=== PATIENT | male | born 1995 | race Two or more races ===

== ENCOUNTER 2021-05-05 21:40 | Emergency (ER) | payer SELFPAY ==
[~2021-05-05] VITALS: Ht 165.1 cm; Wt 95.3 kg
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
[2021-05-05] MEDS ORDERED: TETRACAINE HCL 0.5% OPHTALMIC 15 ML BOTTLE OP ONE (22:00)
[2021-05-05] MEDS ORDERED: FLUORESCEIN SODIUM OPHTH 1 EA STRIP OP ONE (22:00)
[2021-05-05] MEDS ORDERED: FLUORESCEIN SODIUM OPHTH 1 EA STRIP ONE (22:01)
--- NOTE | 2021-05-05 22:03 | NUR ---
[employer] AT BEDSIDE
--- NOTE | 2021-05-05 22:08 | NUR ---
RT EYE 20/70, LEFT EYE 20/70, BOTH EYES 20/70. REDNESS AND BURING IN BOTH EYES
--- NOTE | 2021-05-05 22:28 | NUR ---
PT. REFUSED EYE TREATMENT FROM PA.
[2021-05-05 23:23] VITALS: BP 151/90
== END 2021-05-05 23:10 | disposition left against medical advice (07) ==
LOC: ER 21:43
DX: H57.11 Ocular pain, right eye (principal); E11.9 Type 2 diabetes mellitus without complications; Z59.00 Homelessness unspecified
CPT/HCPCS: 99283; J7030